=== PATIENT | female | born 1950 | race Two or more races ===

== ENCOUNTER 2023-03-11 12:23 | Outpatient (OUT) | payer BC, SELFPAY ==
--- NOTE | 2023-03-11 12:31 | XR_ITS ---
The [address] [address] Patient Name: COLIN OBRIEN MRN: [id number] date: 1950 Sex: F Assigned Patient Location: [facility] Current Patient Location: [facility] Accession/Order Number: [id number] Exam Date: 03/11/2023 12:39 Report Date: 03/11/2023 12:57 At the request of: ZAK MEJIA Procedure: XR ankle RT min 3V EXAM: XR ankle RT min 3V HISTORY: Right lower leg pain and swelling, right leg pain M79.604 for the past 3 days. The patient reports no known injury. COMPARISON: None. TECHNIQUE: 3 views of the right ankle were obtained. FINDINGS: There is no evidence of an acute fracture or dislocation. The mortise is intact. No osteochondral injury is identified. The subtalar joints are intact. Osteophytes arise from the posterior calcaneus. Mild diffuse osteopenia is noted. No abnormal soft tissue calcifications are present. XR/XR ankle RT min 3V IMPRESSION: No acute fracture or dislocation. No significant degenerative changes are seen about the joints at the ankle. Osteophytes arise from the posterior calcaneus. Direct comparison with a previous study would be helpful in determining the chronicity of these findings. Electronically authenticated by: DENISE MIRANDA Date: 03/11/2023 12:57
== END 2023-03-11 12:24 | disposition home or self-care (01) ==
PROVIDERS: PCP Family Medicine; Visit Provider Nurse Practitioner Family
DX: M79.604 Pain in right leg (principal)
CPT/HCPCS: 73610